=== PATIENT | female | born 2000 | race Caucasian/White ===

== ENCOUNTER 2022-05-19 09:55 | Inpatient (IN) ==
[2022-05-19] MEDS ORDERED: Penicillin G Potassium IV 5,000,000 UNITS in NS 0.9% 100 ml BAG 100 ML IVPB ONE (10:49)
[2022-05-19] MEDS ORDERED: Lactated Ringers 1000 ml BAG 1,000 ML IV ONE ×2 (10:49→19:51)
[2022-05-19] MEDS ORDERED: Oxytocin in LR 20,000 MILLI.UNIT/1,000 ML BAG IV SCH (11:00)
[2022-05-19] MEDS ORDERED: Lactated Ringers 1000 ml BAG 1,000 ML IV SCH ×2 (11:00→20:00)
[2022-05-19 11:57] LABS: ABS Basophils 0.1 10^3/ul (0-0.2); ABS Eosinophils 0.2 10^3/ul (0-0.6); ABS Lymphocytes 1.7 10^3/ul (1.0-4.8); ABS Monocytes 0.6 10^3/ul (0-0.8); ABS Neutrophils 10.8 10^3/ul (1.5-7.7); Eosinophil % 1.2 %; Hematocrit 39 % (35-47); Lymphocyte % 12.7 %; Mean Corpuscular HGB Conc 33 g/dL (31-36); Mean Corpuscular Hemoglobin 26 pg (27-31); Mean Corpuscular Volume 79 fL (80-97); Mean Platelet Volume 8.1 fL (7.4-10.4); Nucleated Red Blood Cells % 0.1; Platelet Count 229 10^3/uL (150-450); Red Blood Count 4.91 10^6 /uL (3.70-4.87); Red Cell Distribution Width 15 % (10-15); White Blood Count 13.3 10^3/uL (3.5-10.8)
[2022-05-19 12:30] LABS: Urine Benzodiazepine Screen None Detected (None Detect); Urine Cannabinoids Screen None Detected (None Detect); Urine Opiates Screen None Detected (None Detect)
[2022-05-19] MEDS: Penicillin G Potassium IV 3,000,000 UNITS in NS 0.9% 100 ml BAG 100 ML IVPB SCH ×2 (16:48→23:42)
[2022-05-19] MEDS ORDERED: OBEPIDURAL (200 ML) 200 ML EPIDURAL ONE (16:57)
[2022-05-19] MEDS ORDERED: EPINEPHrine SULFITE FREE 1 MG/ML ONE (16:58)
[2022-05-19] MEDS ORDERED: Lidocaine 1% VIAL 10 MG/ML VIAL 30 ML ONE (16:58)
[2022-05-19] MEDS ORDERED: Bupivacaine 0.25% w/EPI 10 ML SDV ONE (19:05)
[2022-05-19] MEDS ORDERED: fentaNYL 100 mcg/2 ml 50 MCG/ML VIAL IV SLOW PU ONE (19:10)
[2022-05-19] MEDS ORDERED: fentaNYL 100 mcg/2 ml 50 MCG/ML VIAL ONE ×2 (19:10→22:09)
[2022-05-19] MEDS ORDERED: Sodium Citrate/Citric Acid LIQ 15 ML UDC PO PRN (19:51)
[2022-05-19] MEDS ORDERED: Phenylephrine 40 mcg/mL 10mL (400mcg) SYRINGE IV PUSH PRN ×2 (19:51)
[2022-05-19] MEDS ORDERED: OBEPIDURAL (200 ML) 200 ML EPIDURAL SCH (20:00)
[2022-05-19 21:08] LABS: Urine Appearance Clear; Urine Bilirubin Negative (Negative); Urine Blood 1+ (Negative); Urine Color Yellow; Urine Glucose Negative (Negative); Urine Ketones 2+ (Negative); Urine Nitrite Negative (Negative); Urine Protein Negative (Negative); Urine Specific Gravity 1.019 (1.002-1.030); Urine Urobilinogen Negative (Negative)
[2022-05-19 21:13] LABS: Urine Bacteria Absent (Absent); Urine Red Blood Cell 2+(6-10/hpf) (Absent); Urine Squamous Epithelial Cell Present (Absent); Urine White Blood Cell Trace(0-5/hpf) (Absent)
[2022-05-19] MEDS ORDERED: ceFAZolin 2 GM in NS PREMIX 2 GM/100 ML BAG IVPB ONE (22:03)
[2022-05-19] MEDS ORDERED: Azithromycin 500 mg/250 ml NS 500 MG/250 ML BAG IVPB ONE (22:03)
[2022-05-19] MEDS ORDERED: ceFAZolin 2 GM PREMIX 2 GM/50 ML BAG ONE (22:07)
[2022-05-19] MEDS ORDERED: Chloroprocaine 3% 20 ml VIAL ONE ×2 (22:09→23:04)
[2022-05-19] MEDS ORDERED: Dexamethasone IV 4 MG/ML VIAL 1 ml VIAL ONE (22:11)
[2022-05-19] MEDS ORDERED: Oxytocin 10 UNITS/ML 1 ML VIAL ONE (22:11)
[2022-05-19] MEDS ORDERED: Ondansetron 4 mg VIAL 2 MG/ML 2 ml VIAL ONE (22:11)
[2022-05-19] MEDS ORDERED: ceFAZolin 2 GM/50 ML BAG IV ONE (23:00)
[2022-05-19] MEDS ORDERED: Acetaminophen IV 1 GM/100ML 1,000 MG/100 ML BAG IV ONE (23:27)
[2022-05-19] MEDS ORDERED: Morphine PF AMP (0.5MG/ML) 5 MG/10 ML AMP ONE (23:32)
[2022-05-19] MEDS ORDERED: Prochlorperazine 5 mg/ml 2 ml VIAL (10 mg) IV PRN (23:47)
[2022-05-19] MEDS ORDERED: Naloxone 0.4 mg VIAL 0.4 mg/ml 1 ml VIAL IV PRN (23:47)
[2022-05-19] MEDS ORDERED: Ondansetron 4 mg VIAL 2 MG/ML 2 ml VIAL IV PRN (23:49)
[2022-05-19] MEDS ORDERED: Acetaminophen IV 1 GM/100ML 1,000 MG/100 ML BAG IV PRN (23:49)
[2022-05-19] MEDS ORDERED: Naloxone 0.4 mg VIAL 0.4 mg/ml 1 ml VIAL IV PUSH PRN (23:49)
[2022-05-19] MEDS ORDERED: Metoclopramide 5 MG/ML VIAL (10 mg) IV PRN (23:49)
[2022-05-20] MEDS ORDERED: Glycerin ADULT 2.4 gm SUPP PR PRN (00:10)
[2022-05-20] MEDS ORDERED: Dibucaine 1% OINT 28.35 GM TUBE PR PRN (00:10)
[2022-05-20] MEDS ORDERED: Witch Hazel PAD JAR TOPICAL PRN (00:10)
[2022-05-20] MEDS: fentaNYL 100 mcg/2 ml 50 MCG/ML VIAL IV PRN ×2 (00:31→01:01)
[2022-05-20] MEDS ORDERED: Lactated Ringers 1000 ml BAG 1,000 ML IV SCH (01:00)
[2022-05-20] MEDS: Penicillin G Potassium IV 3,000,000 UNITS in NS 0.9% 100 ml BAG 100 ML IVPB SCH (03:06)
[2022-05-20] MEDS ORDERED: Morphine PF AMP (0.5MG/ML) 5 MG/10 ML AMP ONE (07:18)
[2022-05-21 07:34] LABS: ABS Eosinophils 0.2 10^3/ul (0-0.6); ABS Lymphocytes 2.6 10^3/ul (1.0-4.8); ABS Monocytes 0.9 10^3/ul (0-0.8); ABS Neutrophils 13.3 10^3/ul (1.5-7.7); Hematocrit 30 % (35-47); Lymphocyte % 15.3 %; Mean Corpuscular HGB Conc 33 g/dL (31-36); Mean Corpuscular Hemoglobin 27 pg (27-31); Mean Corpuscular Volume 82 fL (80-97); Mean Platelet Volume 7.9 fL (7.4-10.4); Platelet Count 213 10^3/uL (150-450); Red Blood Count 3.65 10^6 /uL (3.70-4.87); Red Cell Distribution Width 15 % (10-15)
[2022-05-22 08:42] VITALS: BP 128/70
== END 2022-05-22 12:00 | disposition home or self-care (01) | DRG 540 ==
LOC: MCHOBOUT 09:55 → MCHOB 10:19
PROVIDERS: ADMIT Midwife; ATTEND Midwife